=== PATIENT | female | born 1985 | race Caucasian/White ===

== ENCOUNTER → 2021-03-24 16:05 | Observation (INO) ==
[2021-03-24 15:25] LABS: Bilirubin,Urine Negative (Negative); Blood,Urine Negative (Negative); Clarity,Urine Turbid (Clear); Color,Urine Yellow (Yellow); Glucose,Urine (UA) Normal (Normal); Ketones,Urine Negative (Negative); Leukocyte Esterase,Urine Trace (Negative); Mucus,Urine Moderate per lpf (None-Few); Nitrite,Urine Negative (Negative); Protein,Urine 30 mg/dL (Neg-Trace); RBC,Urine 0-3 per hpf (0-3); Squamous Epithelial Cell,Urine Moderate per hpf (None-Few); Urobilinogen,Urine Normal (Normal); WBC,Urine 0-3 per hpf (0-3)
[2021-03-24 15:44] LABS: Candida DNA Not Detected (Not Detect); Gardnerella DNA DETECTED (Not Detect); Trichomonas DNA Not Detected (Not Detect)
== END | disposition home or self-care (01) ==
LOC: 1NENULAB
PROVIDERS: ADMIT Advanced Practice Midwife; ATTEND Advanced Practice Midwife

== ENCOUNTER → 2021-04-24 16:40 | Observation (INO) ==
[2021-04-24 16:12] LABS: Basophils % 0.4 %; Eosinophils # 0.1 K/mcL (0.0-0.6); Eosinophils % 1.4 %; Hematocrit 31.9 % (35.3-44.9); Hemoglobin 11.3 g/dL (11.5-15.4); Immature Granulocytes % 0.4 % (0-4); Lymphocytes # 1.1 K/mcL (0.6-4.6); Lymphocytes % 14.5 %; Mean Corpuscular HGB Conc 35.4 g/dL (31.6-35.5); Mean Corpuscular Hemoglobin 31.9 pg (28.0-33.3); Mean Corpuscular Volume 90.1 fL (83.0-100.0); Mean Platelet Volume 10.3 fL (9.4-12.4); Monocytes # 0.4 K/mcL (0.0-1.3); Monocytes % 5.3 %; Neutrophils # 5.8 K/mcL (1.6-8.9); Platelet Count 263 K/mcL (140-400); Red Blood Count 3.54 M/mcL (3.82-4.97); Red Cell Distribution Width 12.2 % (11.5-14.5); White Blood Count 7.4 K/mcL (4.3-11.1)
[2021-04-24 16:25] LABS: Alanine Aminotransferase 19 Units/L (7-52); Aspartate Amino Transferase 19 Units/L (13-39); BUN/Creatinine Ratio 11 (6-26); Blood Urea Nitrogen 6 mg/dL (6-20); Glucose,1 Hour PP 50gm Dose 182 mg/dL; Lactate Dehydrogenase 155 Units/L (140-271); eGFR For African Americans > 60 (> 60); eGFR For Non-African Americans > 60 (> 60)
[2021-04-24 16:58] LABS: Protein/Creatinine Ratio,Urine 0.21 mg/mg (0.00-0.20)
== END | disposition home or self-care (01) ==
LOC: 1NENULAB
PROVIDERS: ADMIT Obstetrics & Gynecology; ATTEND Obstetrics & Gynecology

== ENCOUNTER 2021-05-19 16:10 | Inpatient (IN) ==
[2021-05-19] MEDS ORDERED: Famotidine 20 MG/2 ML VIAL IVP ONE (16:13)
[2021-05-19] MEDS ORDERED: Metoclopramide 10 MG/2 ML VIAL IVP ONE (16:13)
[2021-05-19] MEDS ORDERED: CeFAZolin 2,000 MG/120 ML BAG IVPB ONE ×2 (16:13→18:00)
[2021-05-19 17:01] LABS: Basophils % 0.4 %; Eosinophils # 0.1 K/mcL (0.0-0.6); Eosinophils % 0.9 %; Hematocrit 36.1 % (35.3-44.9); Hemoglobin 12.5 g/dL (11.5-15.4); Immature Granulocytes % 0.4 % (0-4); Lymphocytes % 13.7 %; Mean Corpuscular HGB Conc 34.6 g/dL (31.6-35.5); Mean Corpuscular Volume 89.6 fL (83.0-100.0); Mean Platelet Volume 10.7 fL (9.4-12.4); Monocytes # 0.6 K/mcL (0.0-1.3); Monocytes % 8.2 %; Neutrophils # 5.7 K/mcL (1.6-8.9); Platelet Count 271 K/mcL (140-400); Red Blood Count 4.03 M/mcL (3.82-4.97); Red Cell Distribution Width 12.4 % (11.5-14.5); Segmented Neutrophils % 76.4 %; White Blood Count 7.4 K/mcL (4.3-11.1)
[2021-05-19] MEDS ORDERED: *HR* Labetalol 20 MG/4 ML SYRINGE IVP ONE (17:04)
[2021-05-19] MEDS ORDERED: *HR* Midazolam HCl 2 MG/2 ML VIAL ONE (17:08)
[2021-05-19] MEDS ORDERED: *HR* Morphine Sulfate/PF 10 MG/10 ML AMPUL ONE (17:08)
[2021-05-19] MEDS ORDERED: *HR* FentaNYL (PF) 100 MCG/2 ML VIAL ONE ×3 (17:08→19:01)
[2021-05-19] MEDS ORDERED: Ondansetron 4 MG/2 ML VIAL ONE (17:09)
[2021-05-19] MEDS ORDERED: Ketorolac 30 MG/ML VIAL ONE (17:10)
[2021-05-19] MEDS ORDERED: *HR* Oxytocin 10 UNIT/ML VIAL ONE (17:10)
[2021-05-19] MEDS ORDERED: Ringers Solution, Lactated 1,000 ML ONE (17:10)
[2021-05-19] MEDS ORDERED: EPHEDrine 50 MG/ML VIAL ONE (17:12)
[2021-05-19] MEDS ORDERED: *HR* Phenylephrine 10 MG/ML VIAL ONE (17:15)
[2021-05-19] MEDS: Ringers Solution, Lactated 1,000 ML IVC SCH ×2 (17:19→17:37)
[2021-05-19 17:22] LABS: Amphetamine Screen,Urine Negative ng/mL (Cutoff=1000); Barbiturate Screen,Urine Negative ng/mL (Cutoff=200); Benzodiazepines Screen,Urine Negative ng/mL (Cutoff=200); Cannabinoid Screen,Urine Negative ng/mL (Cutoff = 50); Cocaine Screen,Urine Negative ng/mL (Cutoff= 300); Creatinine,Urine 73 mg/dL; Opiate Screen,Urine Negative ng/mL (Cutoff=300); Phencyclidine Screen,Urine Negative ng/mL (Cutoff=25); Protein/Creatinine Ratio,Urine 0.22 mg/mg (0.00-0.20)
[2021-05-19 17:25] LABS: Alanine Aminotransferase 53 Units/L (7-52); Aspartate Amino Transferase 37 Units/L (13-39); BUN/Creatinine Ratio 15 (6-26); Blood Urea Nitrogen 9 mg/dL (6-20); Lactate Dehydrogenase 178 Units/L (140-271); Uric Acid 3.1 mg/dL (2.3-7.6); eGFR For African Americans > 60 (> 60); eGFR For Non-African Americans > 60 (> 60)
[2021-05-19 17:26] LABS: Influenza A PCR Negative (Negative); Influenza B PCR Negative (Negative); Resp. Syncytial Virus PCR Negative (Negative)
[2021-05-19 17:37] LABS: SARS-CoV-2 by PCR (In House) Negative (Negative)
[2021-05-19] MEDS ORDERED: Acetaminophen IV 1,000 MG/100 ML BAG IVPB ONE (18:41)
[2021-05-19] MEDS ORDERED: Ringers Solution, Lactated 1,000 ML IVC SCH (21:57)
[2021-05-19] MEDS ORDERED: Oxytocin 20 units/ LR 1000 mL 20 UNIT/1,000 ML BAG IVC SCH (21:57)
[2021-05-19] MEDS ORDERED: Simethicone 80 MG TAB.CHEW PO PRN (21:57)
[2021-05-19] MEDS ORDERED: Ondansetron 4 MG/2 ML VIAL IVP PRN (21:57)
[2021-05-19] MEDS ORDERED: Metoclopramide 10 MG/2 ML VIAL IVP PRN (21:57)
[2021-05-19] MEDS ORDERED: Rho Immune Globulin 1,500 UNIT SYRINGE IM ONE (21:57)
[2021-05-19] MEDS: Ibuprofen 600 MG TABLET PO SCH (22:36)
[2021-05-20] MEDS: Ibuprofen 600 MG TABLET PO SCH ×3 (03:55→16:34)
[2021-05-20] MEDS: Acetaminophen 325 MG TABLET PO SCH ×3 (03:55→16:35)
[2021-05-20 06:56] LABS: Basophils % 0.1 %; Immature Granulocytes % 0.4 % (0-4); Lymphocytes # 0.6 K/mcL (0.6-4.6); Lymphocytes % 4.9 %; Mean Corpuscular HGB Conc 33.1 g/dL (31.6-35.5); Mean Corpuscular Hemoglobin 30.5 pg (28.0-33.3); Mean Corpuscular Volume 92.2 fL (83.0-100.0); Mean Platelet Volume 10.7 fL (9.4-12.4); Monocytes # 0.8 K/mcL (0.0-1.3); Monocytes % 6.8 %; Neutrophils # 9.9 K/mcL (1.6-8.9); Platelet Count 227 K/mcL (140-400); Red Blood Count 3.47 M/mcL (3.82-4.97); Red Cell Distribution Width 12.4 % (11.5-14.5); Segmented Neutrophils % 87.8 %
[2021-05-20 06:57] LABS: Hemoglobin 10.6 g/dL (11.5-15.4); White Blood Count 11.3 K/mcL (4.3-11.1)
[2021-05-20] MEDS ORDERED: PRENATAL PO SCH (09:00)
[2021-05-20] MEDS ORDERED: Ondansetron ODT 4 MG TAB.RAPDIS PO SCH (09:00)
[2021-05-20] MEDS: Prenatal Vit/FA 1 EACH TABLET PO SCH (09:35)
[2021-05-20 09:47] LABS: Alanine Aminotransferase 46 Units/L (7-52); Aspartate Amino Transferase 50 Units/L (13-39); BUN/Creatinine Ratio 17 (6-26); Blood Urea Nitrogen 9 mg/dL (6-20); Lactate Dehydrogenase 246 Units/L (140-271); Uric Acid 3.4 mg/dL (2.3-7.6); eGFR For African Americans > 60 (> 60); eGFR For Non-African Americans > 60 (> 60)
[2021-05-20] MEDS: *HR* OxyCODONE Immed Rel 5 MG TABLET PO PRN (16:34)
[2021-05-21] MEDS: Acetaminophen 325 MG TABLET PO SCH ×2 (00:31→07:10)
[2021-05-21] MEDS: *HR* OxyCODONE Immed Rel 5 MG TABLET PO PRN ×2 (00:31→08:21)
[2021-05-21] MEDS: Ibuprofen 600 MG TABLET PO SCH ×2 (00:31→07:10)
[2021-05-21 08:04] LABS: Basophils % 0.3 %; Eosinophils # 0.1 K/mcL (0.0-0.6); Eosinophils % 1.3 %; Hematocrit 32.3 % (35.3-44.9); Hemoglobin 10.6 g/dL (11.5-15.4); Immature Granulocytes % 0.3 % (0-4); Lymphocytes # 1.2 K/mcL (0.6-4.6); Mean Corpuscular HGB Conc 32.8 g/dL (31.6-35.5); Mean Corpuscular Hemoglobin 30.4 pg (28.0-33.3); Mean Corpuscular Volume 92.6 fL (83.0-100.0); Mean Platelet Volume 10.3 fL (9.4-12.4); Monocytes # 0.7 K/mcL (0.0-1.3); Monocytes % 7.5 %; Neutrophils # 6.7 K/mcL (1.6-8.9); Platelet Count 242 K/mcL (140-400); Red Blood Count 3.49 M/mcL (3.82-4.97); Segmented Neutrophils % 76.6 %; White Blood Count 8.8 K/mcL (4.3-11.1)
[2021-05-21] MEDS: Prenatal Vit/FA 1 EACH TABLET PO SCH (08:21)
[2021-05-21 08:24] VITALS: BP 128/80; PULSE 67; TEMP 97.8; O2SAT 98
[2021-05-21 08:24] LABS: Alanine Aminotransferase 44 Units/L (7-52); Aspartate Amino Transferase 54 Units/L (13-39); BUN/Creatinine Ratio 11 (6-26); Blood Urea Nitrogen 7 mg/dL (6-20); Lactate Dehydrogenase 253 Units/L (140-271); Uric Acid 3.8 mg/dL (2.3-7.6); eGFR For African Americans > 60 (> 60); eGFR For Non-African Americans > 60 (> 60)
== END 2021-05-21 11:04 | disposition home or self-care (01) | DRG 784 ==
LOC: 1NENULAB 16:10 → 1NENUOBS 21:55
PROVIDERS: ADMIT Student in an Organized Health Care Education/Training Program; ATTEND Student in an Organized Health Care Education/Training Program